=== PATIENT | female | born 1950 | race African-American/Black ===

== ENCOUNTER 2021-10-08 08:12 | Inpatient (IN) ==
[2021-10-08 09:09] LABS: RBC,Urine 6 /HPF (0-4); Squamous Epithelial Cell,Urine Occasional /HPF (0-10)
[2021-10-08 09:10] LABS: Bilirubin,Urine Negative (Negative); Blood, Urine Large mg/dL (Negative); Glucose,Urine (UA) 100 mg/dL (Negative); Ketones,Urine Negative (Negative); Nitrite,Urine Negative (Negative); Protein,Urine >=300 mg/dL (Negative); Urine Appearance Clear (Clear); Urine Color BLUE (Yellow); Urine Specific Gravity > 1.030 (1.001-1.035); Urine Urobilinogen 0.2 eU/dL (<2.0)
[2021-10-08] MEDS ORDERED: cefTRIAXone 1,000 MG in SODIUM CHLORIDE 0.9% 100 ML IV STA (10:21)
[2021-10-08] MEDS ORDERED: SODIUM CHLORIDE 0.9% 500 ML IV STA (10:21)
[2021-10-08 11:15] LABS: Basophils % 0.6 % (0.0-0.8); Eosinophils # 0.2 10*3/uL (0.0-0.87); Eosinophils % 3.6 % (0.00-10.9); Hematocrit 25.1 VOL% (35.7-47.0); Hemoglobin 7.8 GM/DL (12.0-16.0); Immature Granulocytes % 0.2 %; Immature Granulocytes Absolute 0.01 #; Lymphocytes % 20.8 % (21.3-54.2); Mean Corpuscular HGB Conc 31.1 GM/DL (32-36); Mean Corpuscular Volume 98.4 FL (87-102); Mean Platelet Volume 12.2 FL (9.6-12.0); Monocytes # 0.3 10*3/uL (0.11-0.8); Neutrophils % 67.8 % (38.7-73.9); Platelet Count 282 T/CUMM (130-400); Red Blood Count 2.55 MC/CUMM (3.8-5.5); Red Cell Distribution Width 14.1 % (9.3-17.3); White Blood Count 4.7 T/CUMM (4-12)
[2021-10-08 11:30] LABS: Alanine Aminotransferase 21 U/L (13-56); Albumin 3.1 G/DL (3.4-5.0); Alkaline Phosphatase 159 U/L (45-117); Aspartate Amino Transferase 16 U/L (0-37); Bilirubin,Total < 0.39 MG/DL (0.20-1.00); Blood Urea Nitrogen 59 MG/DL (7-18); Calcium 9.8 MG/DL (8.5-10.1); Carbon Dioxide 22 MMOL/L (21-32); Chloride 107 MMOL/L (98-107); Estimated Glom Filtration Rate 41 ML/MIN; Glucose 398 MG/DL (74-106); Osmolality,Calculated 303.1 MOS/KG (273-304); Potassium 4.4 MMOL/L (3.5-5.1); Sodium 135 MMOL/L (136-145); Total Protein 7.1 G/DL (6.4-8.2)
[2021-10-08] MEDS ORDERED: GLUCAGON 1 MG VIAL IM PRN ×2 (12:27→12:54)
[2021-10-08] MEDS ORDERED: ONDANSETRON 4 MG/2 ML VIAL IV PRN (12:27)
[2021-10-08] MEDS ORDERED: cloNIDine 0.1 MG TABLET PO STA (12:55)
[2021-10-08] MEDS ORDERED: DEXTROSE 10% 250 ML BAG IV PRN ×2 (13:05→13:09)
[2021-10-08] MEDS ORDERED: hydrALAZINE 20 MG/1 ML VIAL IV PRN (13:06)
[2021-10-08 16:36] LABS: Hematocrit 24.8 VOL% (35.7-47.0); Hemoglobin 7.7 GM/DL (12.0-16.0)
[2021-10-08] MEDS: INSULIN LISPRO 100 UNIT/ML SUBCUT SCH ×2 (16:51→21:32)
[2021-10-08] MEDS: cloNIDine 0.1 MG TABLET PO SCH (21:29)
[2021-10-08] MEDS: FERROUS SULFATE 325 MG TABLET PO SCH (21:29)
[2021-10-08] MEDS: INSULIN LISPRO PROTAMINE/LISPRO 75/25 100 UNIT/ML SUBCUT SCH (21:38)
[2021-10-09 00:18] LABS: Hematocrit 26.4 VOL% (35.7-47.0)
[2021-10-09] MEDS: ACETAMINOPHEN 325 MG TABLET PO PRN (03:38)
[2021-10-09 04:31] LABS: Basophils % 0.7 % (0.0-0.8); Eosinophils # 0.2 10*3/uL (0.0-0.87); Eosinophils % 5.3 % (0.00-10.9); Hematocrit 25.5 VOL% (35.7-47.0); Hemoglobin 7.6 GM/DL (12.0-16.0); Immature Granulocytes % 0.2 %; Immature Granulocytes Absolute 0.01 #; Lymphocytes # 1.5 10*3/uL (1.4-4.0); Lymphocytes % 33.4 % (21.3-54.2); Mean Corpuscular HGB Conc 29.8 GM/DL (32-36); Mean Platelet Volume 12.1 FL (9.6-12.0); Monocytes # 0.5 10*3/uL (0.11-0.8); Monocytes % 10.3 % (1.7-12.7); Neutrophils % 50.1 % (38.7-73.9); Platelet Count 256 T/CUMM (130-400); Red Blood Count 2.55 MC/CUMM (3.8-5.5); Red Cell Distribution Width 14.1 % (9.3-17.3); White Blood Count 4.6 T/CUMM (4-12)
[2021-10-09 04:49] LABS: Calcium 9.5 MG/DL (8.5-10.1); Osmolality,Calculated 299.1 MOS/KG (273-304); Potassium 4.6 MMOL/L (3.5-5.1)
[2021-10-09 05:41] LABS: Hematocrit 24.2 VOL% (35.7-47.0); Hemoglobin 7.5 GM/DL (12.0-16.0)
[2021-10-09] MEDS ORDERED: FUROSEMIDE 40 MG TABLET PO SCH (09:00)
[2021-10-09] MEDS: LOSARTAN 50 MG TABLET PO SCH (09:17)
[2021-10-09] MEDS: PANTOPRAZOLE 40 MG TABLET PO SCH (09:17)
[2021-10-09] MEDS: ATORVASTATIN 80 MG TABLET PO SCH (09:17)
[2021-10-09] MEDS: cloNIDine 0.1 MG TABLET PO SCH ×2 (09:17→20:25)
[2021-10-09] MEDS: sitaGLIPtin 100 MG TABLET PO SCH (09:17)
[2021-10-09] MEDS: atenoloL 50 MG TABLET PO SCH (09:17)
[2021-10-09] MEDS: INSULIN LISPRO PROTAMINE/LISPRO 75/25 100 UNIT/ML SUBCUT SCH ×2 (09:18→20:27)
[2021-10-09] MEDS: INSULIN LISPRO 100 UNIT/ML SUBCUT SCH ×4 (09:18→20:27)
[2021-10-09] MEDS: cefTRIAXone 1,000 MG in SODIUM CHLORIDE 0.9% 100 ML IV SCH (10:58)
[2021-10-09 11:45] LABS: Hematocrit 27.6 VOL% (35.7-47.0); Hemoglobin 8.3 GM/DL (12.0-16.0)
[2021-10-09 19:12] LABS: Calcium 9.1 MG/DL (8.5-10.1); Osmolality,Calculated 293.3 MOS/KG (273-304); Potassium 4.6 MMOL/L (3.5-5.1)
[2021-10-09] MEDS: FERROUS SULFATE 325 MG TABLET PO SCH (20:25)
[2021-10-10] MEDS: ACETAMINOPHEN 325 MG TABLET PO PRN (04:52)
[2021-10-10 05:34] LABS: Basophils % 0.3 % (0.0-0.8); Eosinophils # 0.2 10*3/uL (0.0-0.87); Eosinophils % 2.7 % (0.00-10.9); Hematocrit 26.3 VOL% (35.7-47.0); Hemoglobin 7.9 GM/DL (12.0-16.0); Immature Granulocytes % 0.3 %; Immature Granulocytes Absolute 0.02 #; Lymphocytes # 1.6 10*3/uL (1.4-4.0); Lymphocytes % 22.3 % (21.3-54.2); Mean Corpuscular Volume 100.4 FL (87-102); Mean Platelet Volume 11.7 FL (9.6-12.0); Monocytes # 0.7 10*3/uL (0.11-0.8); Monocytes % 9.7 % (1.7-12.7); Neutrophils % 64.7 % (38.7-73.9); Platelet Count 278 T/CUMM (130-400); Red Blood Count 2.62 MC/CUMM (3.8-5.5); Red Cell Distribution Width 14.1 % (9.3-17.3)
[2021-10-10] MEDS ORDERED: POTASSIUM CHLORIDE 10 MEQ TABLET PO SCH (09:00)
[2021-10-10] MEDS: atenoloL 50 MG TABLET PO SCH (09:09)
[2021-10-10] MEDS: LOSARTAN 50 MG TABLET PO SCH (09:09)
[2021-10-10] MEDS: cloNIDine 0.1 MG TABLET PO SCH (09:09)
[2021-10-10] MEDS: ATORVASTATIN 80 MG TABLET PO SCH (09:09)
[2021-10-10] MEDS: PANTOPRAZOLE 40 MG TABLET PO SCH (09:10)
[2021-10-10] MEDS: sitaGLIPtin 100 MG TABLET PO SCH (09:10)
[2021-10-10] MEDS: INSULIN LISPRO 100 UNIT/ML SUBCUT SCH ×2 (09:10→12:23)
[2021-10-10] MEDS: INSULIN LISPRO PROTAMINE/LISPRO 75/25 100 UNIT/ML SUBCUT SCH (09:10)
[2021-10-10] MEDS: cefTRIAXone 1,000 MG in SODIUM CHLORIDE 0.9% 100 ML IV SCH (09:16)
[2021-10-10 10:48] LABS: Folate 19.44 NG/ML (5.38-24.0)
[2021-10-10 12:36] VITALS: BP 130/71
== END 2021-10-10 13:07 | disposition home health service (06) | DRG 690 ==
LOC: N.ED 08:12 → N.EDINP 12:27 → SUATTDRO 12:27 → N.5E 14:49
PROVIDERS: ADMIT Internal Medicine; ATTEND Internal Medicine

== ENCOUNTER 2022-03-12 08:11 | Inpatient (IN) ==
[2022-03-12] MEDS ORDERED: LABETALOL 20 MG/4 ML SYRINGE IV ONE (08:42)
[2022-03-12] MEDS ORDERED: LABETALOL 100 MG/20 ML VIAL IV STA (08:42)
[2022-03-12] MEDS ORDERED: cloNIDine 0.1 MG TABLET ONE (08:42)
[2022-03-12] MEDS ORDERED: cloNIDine 0.1 MG TABLET PO STA (08:42)
[2022-03-12 08:52] LABS: Basophils % 0.8 % (0.0-0.8); Eosinophils # 0.1 10*3/uL (0.0-0.87); Eosinophils % 2.1 % (0.00-10.9); Hematocrit 31.5 VOL% (35.7-47.0); Hemoglobin 9.5 GM/DL (12.0-16.0); Immature Granulocytes % 0.3 %; Immature Granulocytes Absolute 0.01 #; Lymphocytes # 0.8 10*3/uL (1.4-4.0); Lymphocytes % 21.2 % (21.3-54.2); Mean Corpuscular HGB Conc 30.2 GM/DL (32-36); Mean Platelet Volume 11.7 FL (9.6-12.0); Monocytes # 0.3 10*3/uL (0.11-0.8); Monocytes % 8.1 % (1.7-12.7); Neutrophils % 67.5 % (38.7-73.9); Platelet Count 261 T/CUMM (130-400); Red Blood Count 3.15 MC/CUMM (3.8-5.5); Red Cell Distribution Width 14.7 % (9.3-17.3); White Blood Count 3.8 T/CUMM (4-12)
[2022-03-12 09:10] LABS: Albumin 3.6 G/DL (3.4-5.0); Bilirubin,Total 0.5 MG/DL (0.20-1.00); Calcium 10.1 MG/DL (8.5-10.1); Osmolality,Calculated 294.1 MOS/KG (273-304); Potassium 4.4 MMOL/L (3.5-5.1)
[2022-03-12] MEDS ORDERED: FUROSEMIDE 40 MG/4 ML VIAL ONE (09:53)
[2022-03-12] MEDS ORDERED: FUROSEMIDE 40 MG/4 ML VIAL IV STA (09:56)
[2022-03-12] MEDS ORDERED: ACETAMINOPHEN 325 MG TABLET PO PRN (11:35)
[2022-03-12] MEDS ORDERED: MORPHINE 2 MG/1 ML SYRINGE IV PRN (11:35)
[2022-03-12] MEDS ORDERED: GLUCAGON 1 MG VIAL IM PRN (11:35)
[2022-03-12] MEDS ORDERED: DOCUSATE SODIUM 100 MG CAPSULE PO PRN (11:35)
[2022-03-12] MEDS ORDERED: ONDANSETRON 4 MG/2 ML VIAL IV PRN (11:35)
[2022-03-12] MEDS ORDERED: CALCIUM CARBONATE CHEW 500 MG TABLET PO PRN (11:35)
[2022-03-12] MEDS: POTASSIUM CHLORIDE 10 MEQ TABLET PO SCH (12:30)
[2022-03-12] MEDS: APIXABAN 5 MG TABLET PO SCH ×2 (12:30→21:35)
[2022-03-12] MEDS: LOSARTAN 50 MG TABLET PO SCH (12:30)
[2022-03-12] MEDS ORDERED: DEXTROSE 10% 250 ML BAG IV PRN (12:37)
[2022-03-12 13:10] LABS: Risk Ratio 1.56; VLDL Cholesterol 12.6 MG/DL
[2022-03-12 14:09] LABS: Hepatitis B Core IgM Quant < 0.05 Index; Hepatitis B Surface Ag Quant < 0.10 Index; Hepatitis B Surface Ag Result Non-Reactive (NonReactive); Hepatitis C Virus Ab Quant 0.24 Index; Hepatitis C Virus Ab Result Non-Reactive (NonReactive)
[2022-03-12] MEDS: INSULIN LISPRO 100 UNIT/ML SUBCUT SCH ×2 (17:05→21:35)
[2022-03-12] MEDS: ATORVASTATIN 80 MG TABLET PO SCH (21:35)
[2022-03-12] MEDS: cloNIDine 0.1 MG TABLET PO SCH (21:35)
[2022-03-12] MEDS: metFORMIN 500 MG TABLET PO SCH (21:35)
[2022-03-12] MEDS: hydrALAZINE 20 MG/1 ML VIAL IV PRN (22:07)
[2022-03-13 04:36] LABS: Basophils % 0.8 % (0.0-0.8); Eosinophils # 0.3 10*3/uL (0.0-0.87); Eosinophils % 7.3 % (0.00-10.9); Hematocrit 27.3 VOL% (35.7-47.0); Hemoglobin 8.6 GM/DL (12.0-16.0); Immature Granulocytes % 0.3 %; Immature Granulocytes Absolute 0.01 #; Lymphocytes # 0.9 10*3/uL (1.4-4.0); Lymphocytes % 24.3 % (21.3-54.2); Mean Corpuscular HGB Conc 31.5 GM/DL (32-36); Mean Corpuscular Volume 97.8 FL (87-102); Mean Platelet Volume 11.5 FL (9.6-12.0); Monocytes # 0.4 10*3/uL (0.11-0.8); Monocytes % 11.6 % (1.7-12.7); Neutrophils % 55.7 % (38.7-73.9); Platelet Count 236 T/CUMM (130-400); Red Blood Count 2.79 MC/CUMM (3.8-5.5); Red Cell Distribution Width 14.7 % (9.3-17.3); White Blood Count 3.5 T/CUMM (4-12)
[2022-03-13] MEDS: hydrALAZINE 20 MG/1 ML VIAL IV PRN (04:48)
[2022-03-13 04:55] LABS: Albumin 2.8 G/DL (3.4-5.0); Bilirubin,Total 0.4 MG/DL (0.20-1.00); Calcium 9.4 MG/DL (8.5-10.1); Osmolality,Calculated 292.1 MOS/KG (273-304); Potassium 3.8 MMOL/L (3.5-5.1); Total Protein 6.2 G/DL (6.4-8.2)
[2022-03-13] MEDS: INSULIN LISPRO 100 UNIT/ML SUBCUT SCH ×4 (07:54→21:36)
[2022-03-13] MEDS ORDERED: atenoloL 50 MG TABLET PO SCH (09:00)
[2022-03-13] MEDS ORDERED: GLUCAGON 1 MG VIAL IM PRN (09:08)
[2022-03-13] MEDS: FUROSEMIDE 40 MG/4 ML VIAL IV SCH (09:16)
[2022-03-13] MEDS: cloNIDine 0.1 MG TABLET PO SCH ×2 (09:24→21:34)
[2022-03-13] MEDS: LOSARTAN 50 MG TABLET PO SCH (09:25)
[2022-03-13] MEDS: APIXABAN 5 MG TABLET PO SCH ×2 (09:25→21:34)
[2022-03-13] MEDS: PANTOPRAZOLE 40 MG TABLET PO SCH (09:25)
[2022-03-13] MEDS: metFORMIN 500 MG TABLET PO SCH ×2 (09:25→21:35)
[2022-03-13] MEDS ORDERED: DEXTROSE 10% 250 ML BAG IV PRN (09:55)
[2022-03-13] MEDS: sitaGLIPtin 100 MG TABLET PO SCH (10:19)
[2022-03-13] MEDS: ISOSORBIDE MONONITRATE 30 MG TABLET PO SCH (11:04)
[2022-03-13] MEDS: INSULIN LISPRO PROTAMINE/LISPRO 75/25 100 UNIT/ML SUBCUT SCH (13:40)
[2022-03-13] MEDS ORDERED: INSULIN LISPRO PROTAMINE/LISPRO 75/25 100 UNIT/ML SUBCUT SCH (17:00)
[2022-03-13] MEDS: hydrALAZINE 25 MG TABLET PO SCH ×2 (17:07→21:34)
[2022-03-13] MEDS: carvediloL 25 MG TABLET PO SCH (21:34)
[2022-03-13] MEDS: ATORVASTATIN 80 MG TABLET PO SCH (21:34)
[2022-03-14 05:45] LABS: Basophils % 0.6 % (0.0-0.8); Eosinophils # 0.3 10*3/uL (0.0-0.87); Eosinophils % 8.9 % (0.00-10.9); Hematocrit 27.3 VOL% (35.7-47.0); Hemoglobin 8.4 GM/DL (12.0-16.0); Immature Granulocytes % 0.3 %; Immature Granulocytes Absolute 0.01 #; Lymphocytes # 0.8 10*3/uL (1.4-4.0); Lymphocytes % 22.3 % (21.3-54.2); Mean Corpuscular HGB Conc 30.8 GM/DL (32-36); Monocytes # 0.4 10*3/uL (0.11-0.8); Monocytes % 12.8 % (1.7-12.7); Neutrophils % 55.1 % (38.7-73.9); Platelet Count 221 T/CUMM (130-400); Red Blood Count 2.73 MC/CUMM (3.8-5.5); Red Cell Distribution Width 14.9 % (9.3-17.3); White Blood Count 3.4 T/CUMM (4-12)
[2022-03-14 06:02] LABS: Calcium 9.1 MG/DL (8.5-10.1); Osmolality,Calculated 299.1 MOS/KG (273-304); Potassium 4.1 MMOL/L (3.5-5.1)
[2022-03-14] MEDS: INSULIN LISPRO 100 UNIT/ML SUBCUT SCH ×4 (08:25→23:21)
[2022-03-14] MEDS: FUROSEMIDE 40 MG/4 ML VIAL IV SCH (08:25)
[2022-03-14] MEDS: INSULIN LISPRO PROTAMINE/LISPRO 75/25 100 UNIT/ML SUBCUT SCH ×2 (08:25→16:53)
[2022-03-14] MEDS: cloNIDine 0.1 MG TABLET PO SCH ×2 (08:25→23:18)
[2022-03-14] MEDS: sitaGLIPtin 100 MG TABLET PO SCH (08:26)
[2022-03-14] MEDS: APIXABAN 5 MG TABLET PO SCH ×2 (08:26→23:19)
[2022-03-14] MEDS: POTASSIUM CHLORIDE 10 MEQ TABLET PO SCH (08:26)
[2022-03-14] MEDS: metFORMIN 500 MG TABLET PO SCH (08:26)
[2022-03-14] MEDS: hydrALAZINE 25 MG TABLET PO SCH ×3 (08:26→23:19)
[2022-03-14] MEDS: ISOSORBIDE MONONITRATE 30 MG TABLET PO SCH (08:26)
[2022-03-14] MEDS: PANTOPRAZOLE 40 MG TABLET PO SCH (08:26)
[2022-03-14] MEDS: carvediloL 25 MG TABLET PO SCH ×2 (08:26→23:19)
[2022-03-14] MEDS: ATORVASTATIN 80 MG TABLET PO SCH (23:18)
[2022-03-15 05:33] LABS: Basophils % 0.3 % (0.0-0.8); Eosinophils # 0.2 10*3/uL (0.0-0.87); Hematocrit 25.9 VOL% (35.7-47.0); Hemoglobin 8.1 GM/DL (12.0-16.0); Immature Granulocytes % 0.3 %; Immature Granulocytes Absolute 0.01 #; Lymphocytes % 28.7 % (21.3-54.2); Mean Corpuscular HGB Conc 31.3 GM/DL (32-36); Mean Corpuscular Volume 98.1 FL (87-102); Mean Platelet Volume 11.7 FL (9.6-12.0); Monocytes # 0.4 10*3/uL (0.11-0.8); Monocytes % 12.9 % (1.7-12.7); Neutrophils % 50.8 % (38.7-73.9); Platelet Count 237 T/CUMM (130-400); Red Blood Count 2.64 MC/CUMM (3.8-5.5); Red Cell Distribution Width 14.8 % (9.3-17.3); White Blood Count 3.4 T/CUMM (4-12)
[2022-03-15 05:54] LABS: Calcium 8.5 MG/DL (8.5-10.1); Osmolality,Calculated 291.1 MOS/KG (273-304); Potassium 4.2 MMOL/L (3.5-5.1)
[2022-03-15] MEDS: INSULIN LISPRO PROTAMINE/LISPRO 75/25 100 UNIT/ML SUBCUT SCH ×2 (07:21→16:35)
[2022-03-15] MEDS: INSULIN LISPRO 100 UNIT/ML SUBCUT SCH ×4 (07:21→22:44)
[2022-03-15] MEDS: carvediloL 25 MG TABLET PO SCH ×2 (09:14→22:44)
[2022-03-15] MEDS: hydrALAZINE 25 MG TABLET PO SCH ×3 (09:14→22:44)
[2022-03-15] MEDS: cloNIDine 0.1 MG TABLET PO SCH ×2 (09:14→22:44)
[2022-03-15] MEDS: PANTOPRAZOLE 40 MG TABLET PO SCH (09:14)
[2022-03-15] MEDS: APIXABAN 5 MG TABLET PO SCH ×2 (09:14→22:44)
[2022-03-15] MEDS: ISOSORBIDE MONONITRATE 30 MG TABLET PO SCH (09:14)
[2022-03-15] MEDS: sitaGLIPtin 100 MG TABLET PO SCH (11:28)
[2022-03-15] MEDS: SACUBITRIL/VALSARTAN 49-51 MG TABLET PO SCH (22:44)
[2022-03-15] MEDS: ATORVASTATIN 80 MG TABLET PO SCH (22:44)
[2022-03-16 05:03] LABS: Basophils % 0.3 % (0.0-0.8); Eosinophils # 0.2 10*3/uL (0.0-0.87); Eosinophils % 5.1 % (0.00-10.9); Hematocrit 27.1 VOL% (35.7-47.0); Hemoglobin 8.5 GM/DL (12.0-16.0); Immature Granulocytes % 0.3 %; Immature Granulocytes Absolute 0.01 #; Lymphocytes # 0.8 10*3/uL (1.4-4.0); Mean Corpuscular HGB Conc 31.4 GM/DL (32-36); Mean Corpuscular Volume 97.8 FL (87-102); Mean Platelet Volume 11.8 FL (9.6-12.0); Monocytes # 0.4 10*3/uL (0.11-0.8); Monocytes % 10.9 % (1.7-12.7); Neutrophils % 63.4 % (38.7-73.9); Platelet Count 229 T/CUMM (130-400); Red Blood Count 2.77 MC/CUMM (3.8-5.5); Red Cell Distribution Width 14.7 % (9.3-17.3); White Blood Count 3.8 T/CUMM (4-12)
[2022-03-16 05:34] LABS: Calcium 8.6 MG/DL (8.5-10.1)
[2022-03-16 08:29] VITALS: BP 162/81
[2022-03-16] MEDS: INSULIN LISPRO PROTAMINE/LISPRO 75/25 100 UNIT/ML SUBCUT SCH (10:41)
[2022-03-16] MEDS: INSULIN LISPRO 100 UNIT/ML SUBCUT SCH ×2 (10:41→12:41)
[2022-03-16] MEDS: sitaGLIPtin 100 MG TABLET PO SCH (10:42)
[2022-03-16] MEDS: SACUBITRIL/VALSARTAN 49-51 MG TABLET PO SCH (10:42)
[2022-03-16] MEDS: PANTOPRAZOLE 40 MG TABLET PO SCH (10:42)
[2022-03-16] MEDS: POTASSIUM CHLORIDE 10 MEQ TABLET PO SCH (10:43)
[2022-03-16] MEDS: carvediloL 25 MG TABLET PO SCH (10:43)
[2022-03-16] MEDS: ISOSORBIDE MONONITRATE 30 MG TABLET PO SCH (10:43)
[2022-03-16] MEDS: cloNIDine 0.1 MG TABLET PO SCH (10:43)
[2022-03-16] MEDS: APIXABAN 5 MG TABLET PO SCH (10:43)
== END 2022-03-16 12:54 | disposition home health service (06) | DRG 291 ==
LOC: N.ED 08:11 → N.EDINP 11:35 → SUATTDRO 11:35 → N.TELES 03-13 10:44
PROVIDERS: ADMIT Internal Medicine; ATTEND Family Medicine